=== PATIENT | female | born 1960 | race Caucasian/White ===

== ENCOUNTER 2020-08-16 22:21 | Inpatient (IN) | payer MEDICARE, BC ==
[~2020-08-16] VITALS: Ht 165.1 cm; Wt 60.3 kg
[~2020-08-16 22:21] MED LIST: CLARITIN10 MG PO; COMBIVENT0.074 GM/I INH; COZAAR25 MG PO; LASIX20 MG PO; LEVAQUIN500 MG PO; LEVAQUIN750 MG PO; PRILOSEC OTC20 MG PO; TAMIFLU 75 MG C75 MG PO
[2020-08-16 22:58] LABS: HEMOGLOBIN 12.3 gm/dl (12.3-15.3); RED BLOOD COUNT 5.02 M/UL (4.00-5.10); WHITE BLOOD COUNT 19.7 K/UL (4.5-11.0)
[2020-08-16 23:26] LABS: BUN/CREATININE RATIO 15 (0-10)
[2020-08-17 07:09] LABS: BUN/CREATININE RATIO 17 (0-10)
[2020-08-17 12:07] LABS: HEMOGLOBIN 12.4 gm/dl (12.3-15.3); RED BLOOD COUNT 5.05 M/UL (4.00-5.10); WHITE BLOOD COUNT 19.4 K/UL (4.5-11.0)
[2020-08-17 12:26] LABS: BUN/CREATININE RATIO 14 (0-10)
[2020-08-17] MEDS ORDERED: ZOLOFT100 MG PO (16:25)
[2020-08-17] MEDS ORDERED: DITROPAN 5 MG TA5 MG PO (16:26)
[2020-08-18 04:41] LABS: HEMOGLOBIN 11.5 gm/dl (12.3-15.3); RED BLOOD COUNT 4.79 M/UL (4.00-5.10)
[2020-08-18 04:47] LABS: WHITE BLOOD COUNT 14.3 K/UL (4.5-11.0)
[2020-08-18 04:59] LABS: BUN/CREATININE RATIO 13 (0-10)
[2020-08-19 04:57] LABS: BUN/CREATININE RATIO 14 (0-10)
[2020-08-21] MEDS ORDERED: CLOPIDOGREL75 MG PO (17:03)
[2020-08-21] MEDS ORDERED: ATORVASTATIN CA20 MG PO (17:03)
[2020-08-21] MEDS ORDERED: LISINOPRIL5 MG PO (17:03)
[2020-08-21] MEDS ORDERED: ASPIRIN EC81 MG PO (17:03)
[2020-08-21] MEDS ORDERED: CARVEDILOL3.125 MG PO (17:03)
== END 2020-08-21 17:56 | disposition home or self-care (01) | DRG 246 ==
LOC: ER1 22:21 → CDU 08-17 00:22 → CCU 08-17 00:22 → M/S 08-19 21:36
PROVIDERS: Internal Medicine; Physician Assistant; ADMIT Internal Medicine Interventional Cardiology
PROC: 027034Z Dilation of Coronary Artery, One Artery with Drug-eluting Intraluminal Device, Percutaneous Approach (ICD-10-PCS; principal; 2020-08-17)
PROC: 4A023N7 Measurement of Cardiac Sampling and Pressure, Left Heart, Percutaneous Approach (ICD-10-PCS; 2020-08-17)
PROC: B2111ZZ Fluoroscopy of Multiple Coronary Arteries using Low Osmolar Contrast (ICD-10-PCS; 2020-08-17)
PROC: B2151ZZ Fluoroscopy of Left Heart using Low Osmolar Contrast (ICD-10-PCS; 2020-08-17)
PROC: B24BZZZ Ultrasonography of Heart with Aorta (ICD-10-PCS; 2020-08-17)
DX: I21.09 ST elevation (STEMI) myocardial infarction involving other coronary artery of anterior wall (principal); J96.21 Acute and chronic respiratory failure with hypoxia; I50.33 Acute on chronic diastolic (congestive) heart failure; I47.2 Ventricular tachycardia; J44.1 Chronic obstructive pulmonary disease with (acute) exacerbation; I43 Cardiomyopathy in diseases classified elsewhere; Z20.822 Contact with and (suspected) exposure to COVID-19; I25.119 Atherosclerotic heart disease of native coronary artery with unspecified angina pectoris; E78.5 Hyperlipidemia, unspecified; K21.9 Gastro-esophageal reflux disease without esophagitis; F32.9 Major depressive disorder, single episode, unspecified; F41.9 Anxiety disorder, unspecified; E87.6 Hypokalemia; E83.42 Hypomagnesemia; I95.9 Hypotension, unspecified; I11.0 Hypertensive heart disease with heart failure; F17.210 Nicotine dependence, cigarettes, uncomplicated; Z82.49 Family history of ischemic heart disease and other diseases of the circulatory system; Z85.51 Personal history of malignant neoplasm of bladder; Z98.51 Tubal ligation status; Z88.0 Allergy status to penicillin; Z88.2 Allergy status to sulfonamides; I25.2 Old myocardial infarction; Z79.82 Long term (current) use of aspirin; Z79.02 Long term (current) use of antithrombotics/antiplatelets; Z99.81 Dependence on supplemental oxygen; Z98.890 Other specified postprocedural states; Z71.6 Tobacco abuse counseling
CPT/HCPCS: ECHO; 36415; 36600; 71045; 80048; 80053; 80061; 80076; 81001; 82550; 82553; 82803; 83735; 83874; 83880; 84484; 85025; 85347; 85379; 85610; 85730; 86140; 87040; 87635; 93005; 93306; 94640; 94664; 94760; 99285; C1725; C1760; C1769; C1874; C1887; J0461; J1205; J1644; J1940; J2250; J2270; J2405; J2550; J3010; J3475; J7040; J7050; Q9965

== ENCOUNTER 2020-09-10 06:26 | Emergency (ER) | payer OTHER, BC ==
[~2020-09-10 06:26] MED LIST changes: +ASPIRIN EC81 MG PO; +ATORVASTATIN CA20 MG PO; +CARVEDILOL3.125 MG PO; +CLOPIDOGREL75 MG PO; +DITROPAN 5 MG TA5 MG PO; +LISINOPRIL5 MG PO; +ZOLOFT100 MG PO
[2020-09-10 07:24] LABS: RED BLOOD COUNT 4.89 M/UL (4.00-5.10); WHITE BLOOD COUNT 11.3 K/UL (4.5-11.0)
[2020-09-10 09:01] LABS: BUN/CREATININE RATIO 16 (0-10)
[2020-09-10] MEDS ORDERED: MEDROL DOSEPAK 24 MG PO (11:21)
== END 2020-09-10 10:48 | disposition home or self-care (01) ==
LOC: ER1 06:26
PROVIDERS: Emergency Medicine
DX: J44.1 Chronic obstructive pulmonary disease with (acute) exacerbation (principal); I11.9 Hypertensive heart disease without heart failure; F17.200 Nicotine dependence, unspecified, uncomplicated; Z20.822 Contact with and (suspected) exposure to COVID-19
CPT/HCPCS: 80053; 82550; 82553; 83605; 83690; 83735; 83874; 83880; 84100; 84484; 85025; 85610; 85730; 87040; 93005; 94640; 94760; 96374; 99285; J2930; Q9967; U0002

== ENCOUNTER → 2020-09-16 | Outpatient (CLI) | payer OTHER, BC ==
[~2020-09-16] MED LIST changes: +LOPRESSOR 25 MG25 MG PO; +MEDROL DOSEPAK 24 MG PO; +PEPCID40 MG PO
== END ==
LOC: EXRD 13:01
DX: R06.02 Shortness of breath (principal); R91.8 Other nonspecific abnormal finding of lung field
CPT/HCPCS: 71046

== ENCOUNTER 2020-09-19 12:49 | Observation (INO) | payer OTHER ==
[~2020-09-19] VITALS: Ht 165.1 cm; Wt 69.9 kg
[~2020-09-19 12:49] MED LIST changes: -LOPRESSOR 25 MG25 MG PO; -PEPCID40 MG PO
[2020-09-19 13:44] LABS: HEMOGLOBIN 11.5 gm/dl (12.3-15.3); RED BLOOD COUNT 4.6 M/UL (4.00-5.10); WHITE BLOOD COUNT 12.2 K/UL (4.5-11.0)
[2020-09-19 14:23] LABS: BUN/CREATININE RATIO 10 (0-10)
[2020-09-19] MEDS ORDERED: LOPRESSOR 25 MG25 MG PO (20:02)
[2020-09-20 02:06] LABS: HEMOGLOBIN 10.5 gm/dl (12.3-15.3); RED BLOOD COUNT 4.27 M/UL (4.00-5.10); WHITE BLOOD COUNT 10.3 K/UL (4.5-11.0)
[2020-09-20 02:32] LABS: BUN/CREATININE RATIO 14 (0-10)
[2020-09-21 06:47] LABS: HEMOGLOBIN 11.8 gm/dl (12.3-15.3); WHITE BLOOD COUNT 9.6 K/UL (4.5-11.0)
[2020-09-21 07:00] LABS: RED BLOOD COUNT 4.72 M/UL (4.00-5.10)
[2020-09-21 07:19] LABS: BUN/CREATININE RATIO 11 (0-10)
[2020-09-21] MEDS ORDERED: PEPCID40 MG PO (13:55)
== END 2020-09-21 16:12 | disposition home or self-care (01) ==
LOC: ER1 12:49 → CDU 15:59 → MED SURG 4 15:59
PROVIDERS: Physician Assistant; Physician Assistant Medical; ADMIT Internal Medicine
DX: R07.89 Other chest pain (principal); I25.2 Old myocardial infarction; I25.5 Ischemic cardiomyopathy; K21.9 Gastro-esophageal reflux disease without esophagitis; I11.0 Hypertensive heart disease with heart failure; I50.22 Chronic systolic (congestive) heart failure; F41.8 Other specified anxiety disorders; J44.9 Chronic obstructive pulmonary disease, unspecified; E87.6 Hypokalemia; F17.210 Nicotine dependence, cigarettes, uncomplicated; Z98.51 Tubal ligation status; Z88.2 Allergy status to sulfonamides; Z88.0 Allergy status to penicillin; Z79.82 Long term (current) use of aspirin; Z79.899 Other long term (current) drug therapy; Z82.49 Family history of ischemic heart disease and other diseases of the circulatory system; Z85.51 Personal history of malignant neoplasm of bladder; E83.42 Hypomagnesemia; Z98.61 Coronary angioplasty status; Z20.822 Contact with and (suspected) exposure to COVID-19; R79.89 Other specified abnormal findings of blood chemistry; Z99.81 Dependence on supplemental oxygen
CPT/HCPCS: ECHO; 36415; 71045; 80048; 80053; 82550; 82553; 83735; 83874; 83880; 84100; 84132; 84439; 84443; 84484; 85025; 85027; 93005; 93306; 94664; 96365; 96376; 97161; 97165; 99285; G0378; J3475; U0002

== ENCOUNTER → 2020-10-04 | Outpatient (CLI) | payer OTHER ==
[~2020-10-04] MED LIST changes: +LOPRESSOR 25 MG25 MG PO; +PEPCID40 MG PO
== END ==
LOC: LAB 14:13
DX: E87.5 Hyperkalemia (principal)
CPT/HCPCS: 36415; 84132

== ENCOUNTER → 2020-10-19 | Outpatient (CLI) | payer OTHER | LOC: RT 12:44 | DX: R09.02 Hypoxemia (principal) | CPT/HCPCS: 36600; 82803 ==

== ENCOUNTER → 2020-10-19 | Outpatient (CLI) | payer OTHER | LOC: EXRD 10:26 | DX: J44.9 Chronic obstructive pulmonary disease, unspecified (principal) | CPT/HCPCS: 71046; 94060; 94729 ==

== ENCOUNTER → 2020-12-07 | Outpatient (CLI) | payer OTHER | LOC: HEART 5 09-20 09:00 | DX: R06.02 Shortness of breath (principal); I07.1 Rheumatic tricuspid insufficiency | CPT/HCPCS: 93306 ==

== ENCOUNTER 2021-06-26 15:23 | Emergency (ER) | payer OTHER ==
[2021-06-26 16:34] LABS: RED BLOOD COUNT 5.05 M/UL (4.00-5.10); WHITE BLOOD COUNT 10.4 K/UL (4.5-11.0)
[2021-06-26 16:55] LABS: BUN/CREATININE RATIO 14 (0-10)
== END 2021-06-26 22:55 | disposition home or self-care (01) ==
LOC: ER1 15:23
PROVIDERS: Physician Assistant Medical
DX: R91.1 Solitary pulmonary nodule (principal); Z20.822 Contact with and (suspected) exposure to COVID-19; I25.2 Old myocardial infarction; E11.9 Type 2 diabetes mellitus without complications; I10 Essential (primary) hypertension; Z88.0 Allergy status to penicillin; Z88.2 Allergy status to sulfonamides; F17.210 Nicotine dependence, cigarettes, uncomplicated
CPT/HCPCS: 71045; 80053; 81001; 82550; 82553; 83874; 83880; 84484; 85025; 93005; 99284; Q9967; U0002

== ENCOUNTER → 2021-07-13 | Day surgery (SDC) | payer OTHER | END | disposition home or self-care (01) | LOC: OR 07:19 | DX: C34.12 Malignant neoplasm of upper lobe, left bronchus or lung (principal); I11.0 Hypertensive heart disease with heart failure; I50.9 Heart failure, unspecified; I25.10 Atherosclerotic heart disease of native coronary artery without angina pectoris; I25.2 Old myocardial infarction; E78.5 Hyperlipidemia, unspecified; J44.9 Chronic obstructive pulmonary disease, unspecified; K21.9 Gastro-esophageal reflux disease without esophagitis; E11.9 Type 2 diabetes mellitus without complications; M19.90 Unspecified osteoarthritis, unspecified site; F41.9 Anxiety disorder, unspecified; F32.A Depression, unspecified; E78.00 Pure hypercholesterolemia, unspecified; F17.200 Nicotine dependence, unspecified, uncomplicated; Z95.5 Presence of coronary angioplasty implant and graft; Z88.1 Allergy status to other antibiotic agents; Z88.2 Allergy status to sulfonamides; Z79.01 Long term (current) use of anticoagulants; Z79.899 Other long term (current) drug therapy; Z79.82 Long term (current) use of aspirin | CPT/HCPCS: J2250; J2704; J7120 ==

== ENCOUNTER → 2021-08-12 | Outpatient (CLI) | payer OTHER | LOC: OPSV2 12:24 | DX: C34.90 Malignant neoplasm of unspecified part of unspecified bronchus or lung (principal); R91.8 Other nonspecific abnormal finding of lung field | CPT/HCPCS: 71046 ==

== ENCOUNTER → 2021-08-16 | Day surgery (SDC) | payer OTHER | END | disposition home or self-care (01) | LOC: OR 08-12 12:34 | DX: C34.92 Malignant neoplasm of unspecified part of left bronchus or lung (principal); K21.9 Gastro-esophageal reflux disease without esophagitis; I10 Essential (primary) hypertension; E78.00 Pure hypercholesterolemia, unspecified; I25.2 Old myocardial infarction; Z20.822 Contact with and (suspected) exposure to COVID-19; Z85.51 Personal history of malignant neoplasm of bladder; Z98.61 Coronary angioplasty status; Z88.0 Allergy status to penicillin; Z88.2 Allergy status to sulfonamides; Z79.02 Long term (current) use of antithrombotics/antiplatelets; Z98.51 Tubal ligation status; Z72.0 Tobacco use | CPT/HCPCS: 71045; 77001; 82962; C1769; C1788; J0690; J1100; J1642; J2001; J2405; J2704; J3010; J7040; J7120 ==

== ENCOUNTER → 2021-11-01 | Outpatient (CLI) | payer OTHER ==
[2021-11-01 11:21] LABS: HEMOGLOBIN 10.8 gm/dl (12.3-15.3); RED BLOOD COUNT 3.6 M/UL (4.00-5.10); WHITE BLOOD COUNT 8.6 K/UL (4.5-11.0)
[2021-11-01 11:40] LABS: BUN/CREATININE RATIO 27 (0-10)
== END ==
LOC: CT 10:22
PROVIDERS: Internal Medicine Hematology & Oncology
DX: C34.12 Malignant neoplasm of upper lobe, left bronchus or lung (principal); Z79.899 Other long term (current) drug therapy
CPT/HCPCS: 36415; 71260; 80053; 85025; Q9967

== ENCOUNTER → 2022-01-24 | Outpatient (CLI) | payer OTHER ==
[2022-01-24 11:46] LABS: HEMOGLOBIN 12.8 gm/dl (12.3-15.3); RED BLOOD COUNT 4.81 M/UL (4.00-5.10); WHITE BLOOD COUNT 9.3 K/UL (4.5-11.0)
[2022-01-24 12:04] LABS: BUN/CREATININE RATIO 18 (0-10)
== END ==
LOC: CT 11:29
PROVIDERS: Internal Medicine Hematology & Oncology
DX: C34.12 Malignant neoplasm of upper lobe, left bronchus or lung (principal); Z79.899 Other long term (current) drug therapy
CPT/HCPCS: 36415; 71260; 80053; 85025; Q9967

== ENCOUNTER → 2022-01-26 | Outpatient (CLI) | payer OTHER | LOC: HEART 5 14:32 | DX: R06.02 Shortness of breath (principal); I25.2 Old myocardial infarction; I08.1 Rheumatic disorders of both mitral and tricuspid valves | CPT/HCPCS: 93306 ==